=== PATIENT | male | born 1970 | race Caucasian/White ===

== ENCOUNTER 2021-07-20 15:06 | Emergency (ER) | payer BC ==
[~2021-07-20] VITALS: Ht 193 cm; Wt 122.7 kg
[2021-07-20 15:57] LABS: ALANINE AMINOTRANSFERASE 63 U/L (12-78); ALBUMIN 3.7 G/DL (3.4-5.0); ALKALINE PHOSPHATASE 62 IU/L (46-116); ANION GAP 8 (8-16); ASPARTATE AMINO TRANSFERASE 31 U/L (10-37); BILIRUBIN,TOTAL 0.7 MG/DL (0.1-1.0); BLOOD UREA NITROGEN 14 MG/DL (7-18); BUN/CREATININE RATIO 12.3 (5.4-32.0); CALCIUM 9.1 MG/DL (8.5-10.1); CHLORIDE 103 MMOL/L (99-107); CREATININE 1.14 MG/DL (0.60-1.10); GLUCOSE 128 MG/DL (70-104); LIPASE 93 U/L (73-393); POTASSIUM 3.8 MMOL/L (3.5-5.1); SODIUM 137 MMOL/L (135-145); TOTAL CARBON DIOXIDE 25.7 MMOL/L (24-32); TOTAL PROTEIN 7.5 G/DL (6.4-8.2); eGFR 67 ML/MIN
[2021-07-20 15:59] LABS: BASOPHILS % (AUTO) 0.4 % (0-1); EOSINOPHILS % (AUTO) 0.2 % (0-6); HEMATOCRIT 40.9 % (42.0-52.0); HEMOGLOBIN 13.6 g/dl (14.0-17.9); LYMPHOCYTES # (AUTO) 0.5 X10'3 (1.1-4.8); LYMPHOCYTES % (AUTO) 5.1 % (21-51); MEAN CORPUSCULAR HEMOGLOBIN 24.6 PG (27.0-31.0); MEAN CORPUSCULAR HGB CONC 33.3 g/dL (33.0-36.5); MEAN CORPUSCULAR VOLUME 73.9 FL (78-98); MEAN PLATELET VOLUME 8.6 FL (7.4-10.4); MONOCYTES # (AUTO) 0.6 X10'3 (0-0.9); MONOCYTES % (AUTO) 5.7 % (2-12); NEUTROPHILS # (AUTO) 8.8 X10'3 (1.8-7.7); NEUTROPHILS % (AUTO) 88.6 % (42-75); PLATELET COUNT 144 X10'3 (140-440); RED BLOOD COUNT 5.53 X10'6 (4.70-6.10); RED CELL DISTRIBUTION WIDTH 16.8 % (11.5-14.5); WHITE BLOOD COUNT 9.9 X10'3 (4.5-11.0)
[2021-07-20 16:00] LABS: CLARITY,URINE CLEAR (Clear); COLOR,URINE YELLOW (Yellow); GLUCOSE, URINE NEGATIVE (Neg); KETONES,URINE NEGATIVE (Neg); LEUKOCYTE ESTERASE ,URINE NEGATIVE (Neg); NITRITES, URINE NEGATIVE (Neg); OCCULT BLOOD,URINE NEGATIVE (Neg); PH,URINE 7.5 (4.8-8.0); PROTEIN,URINE NEGATIVE (Neg); UROBILINOGEN,URINE 0.2 E.U/dL (0.2-1.0)
[2021-07-20 16:02] LABS: UA COLLECTION TYPE NON-SPECIFIED
[2021-07-20] MEDS ORDERED: LIDOcaine Viscous 15ml cup MM ONE (18:45)
[2021-07-20] MEDS ORDERED: mag hydrox/Alum hydrox/simeth 30ml oral suspension PO ONE (18:45)
[2021-07-20] MEDS ORDERED: ondansetron 4mg rapidly disintigrating tab PO ONE ×2 (18:45→21:25)
[2021-07-20 19:54] VITALS: BP 125/68
[2021-07-20] MEDS ORDERED: morphine 4 MG/ML inj SYRINge IM ONE (21:25)
[2021-07-20] MEDS ORDERED: HYDR-3965 PO (21:42)
[2021-07-20] MEDS ORDERED: ONDA4TAB12 PO (21:42)
[2021-07-20] MEDS ORDERED: HYDROcodone/acetaminophen 5mg/325mg tablet PO ONE (21:55)
== END 2021-07-20 22:05 | disposition home or self-care (01) ==
LOC: ER 15:06
DX: K80.20 Calculus of gallbladder without cholecystitis without obstruction (principal); Z88.2 Allergy status to sulfonamides
CPT/HCPCS: 36415; 76700; 80053; 81003; 83690; 85025; 99284